=== PATIENT | female | born 1985 | race American Indian/Alaskan Native ===

== ENCOUNTER 2019-06-10 14:59 | Emergency (ER) | payer OTHER ==
[~2019-06-10] VITALS: Ht 157.5 cm; Wt 68.0 kg
[~2019-06-10 14:59] MED LIST: CALCIUM CARBON500 MG PO; IRON27 MG PO; KEFLEX500 MG PO; NORCO 5-325 TA1 EACH PO; PRENATAL VITAM1 EACH PO
[2019-06-10] MEDS ORDERED: PERPHENAZINE8 MG PO (16:16)
[2019-06-10] MEDS ORDERED: BENZTROPINE MESY1 MG PO (16:17)
[2019-06-10] MEDS ORDERED: NAPROSYN500 MG PO (16:17)
[2019-06-10] MEDS ORDERED: CLOZAPINE100 MG PO (16:18)
[2019-06-10] MEDS ORDERED: OMEPRAZOLE20 MG PO (16:18)
== END 2019-06-11 10:41 | disposition short-term general hospital (02) ==
LOC: ED 14:59
DX: F20.9 Schizophrenia, unspecified (principal); Z79.899 Other long term (current) drug therapy
CPT/HCPCS: 51701; 80053; 80176; 81001; 84443; 85025; 99285-25; G0480

== ENCOUNTER 2019-10-23 21:59 | Emergency (ER) | payer OTHER ==
[~2019-10-23] VITALS: Ht 157.5 cm; Wt 68.0 kg
[~2019-10-23 21:59] MED LIST changes: +BENZTROPINE MESY1 MG PO; +CLOZAPINE100 MG PO; +NAPROSYN500 MG PO; +OMEPRAZOLE20 MG PO; +PERPHENAZINE8 MG PO
== END 2019-10-24 05:28 | disposition home or self-care (01) ==
LOC: ED 21:59
DX: F10.129 Alcohol abuse with intoxication, unspecified (principal); F20.9 Schizophrenia, unspecified; F17.200 Nicotine dependence, unspecified, uncomplicated; Z79.899 Other long term (current) drug therapy; Y90.8 Blood alcohol level of 240 mg/100 ml or more
CPT/HCPCS: 51701; 80053; 81001; 84703; 85025; 99284-25; G0480

== ENCOUNTER → 2020-02-19 | Emergency (ER) | payer OTHER ==
[~2020-02-19] VITALS: Ht 157.5 cm; Wt 68.0 kg
[~2020-02-19] MED LIST changes: +CEFPODOXIME PR200 MG PO
--- NOTE | 2020-02-22 15:19 | EKG ---
[facility] [address] [place] [address] Signed Normal sinus rhythm Nonspecific T wave abnormality Abnormal ECG When compared with ECG of 18-FEB-2020 14:07, Nonspecific T wave abnormality now evident in Inferior leads Nonspecific T wave abnormality, worse in Anterolateral leads Confirmed by HERIBERTO NEGRO DO ([id number]) on 02/22/2020 10:52:35 AM Electronically Signed By: HERIBERTO NEGRO DO 02/22/20 1519 PATIENT NAME: VINNIE GODDARD Electrocardiogram DATE OF : 89 PHYSICIAN: HERIBERTO NEGRO DO REPORT #: [id number] REPORT IS CONFIDENTIAL AND NOT TO BE RELEASED WITHOUT AUTHORIZATION
== END ==
LOC: ED 21:34
DX: N39.0 Urinary tract infection, site not specified (principal); F20.9 Schizophrenia, unspecified; F17.200 Nicotine dependence, unspecified, uncomplicated; Z79.899 Other long term (current) drug therapy
CPT/HCPCS: 51701; 70450; 71045; 80053; 80176; 81001; 82550; 82803; 83605; 83930; 84703; 85025; 93005; 93010; 99285-25; G0480; J0696; J7030

== ENCOUNTER 2020-03-20 15:38 | Emergency (ER) | payer OTHER ==
[~2020-03-20] VITALS: Ht 154.9 cm; Wt 81.6 kg
--- OUTSIDE RECORDS SUMMARY | 2020-03-20 15:40 | XMS ---
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 Mary has no Care Guidelines for this patient. [place] VISIT COUNT (12 MO.) 4 [facility] TOTAL 4 NOTE: Visits indicate total known visits. ED/C VISIT TRACKING (12 MO.) 03/20/2020 15:39 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 - Altered mental status, unspecified - Somnolence - Urinary tract infection, site not specified - Nicotine dependence, unspecified, uncomplicated 10/23/2019 22:00 [facility] [place] TYPE: Emergency COMPLAINT: - INTOXICATED DIAGNOSES: - Blood alcohol level of 240 mg/100 ml or more - Alcohol abuse with intoxication, unspecified - Schizophrenia, unspecified - Nicotine dependence, unspecified, uncomplicated - Other assisted (current) drug therapy 06/10/2019 14:59 [facility] [place] TYPE: Emergency COMPLAINT: - MEDICAL CLEARANCE DIAGNOSES: - Schizophrenia, unspecified - Other 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
[2020-03-20] MEDS ORDERED: AMITRIPTYLINE H25 MG PO (16:37)
[2020-03-20] MEDS ORDERED: HALOPERIDOL5 MG PO (16:38)
== END 2020-03-20 19:12 | disposition home or self-care (01) ==
LOC: ED 15:38
DX: F15.90 Other stimulant use, unspecified, uncomplicated (principal); F20.9 Schizophrenia, unspecified; F31.9 Bipolar disorder, unspecified; F17.200 Nicotine dependence, unspecified, uncomplicated; Z79.899 Other long term (current) drug therapy
CPT/HCPCS: 80053; 80176; 81001; 84443; 85025; 99285; G0480

== ENCOUNTER 2021-01-30 19:57 | Emergency (ER) | payer OTHER ==
[~2021-01-30] VITALS: Ht 154.9 cm; Wt 81.7 kg
[~2021-01-30 19:57] MED LIST changes: +AMITRIPTYLINE H25 MG PO; +HALOPERIDOL5 MG PO
== END 2021-01-30 22:44 | disposition home or self-care (01) ==
LOC: ED 19:57
DX: F10.129 Alcohol abuse with intoxication, unspecified (principal); Y90.8 Blood alcohol level of 240 mg/100 ml or more; F17.200 Nicotine dependence, unspecified, uncomplicated; Z79.899 Other long term (current) drug therapy; Z79.1 Long term (current) use of non-steroidal anti-inflammatories (NSAID)
CPT/HCPCS: 80053; 81001; 84703; 85025; 99284; G0480

== ENCOUNTER 2024-04-26 16:03 | Emergency (ER) | payer OTHER ==
[~2024-04-26] VITALS: Ht 154.9 cm; Wt 82.0 kg
[2024-04-26 16:29] LABS: BASOPHILS 1.3 % (0-2); EOSINOPHILS 0.8 % (0-6); HEMOGLOBIN 14.5 g/dL (12.0-18.0); LYMPHOCYTES 30.6 % (24-44); MCH 29.7 (27-36); MCHC 34.6 g/dl (30-36); MONOCYTES 4.7 % (0-12); NEUTROPHILS 62.6 % (39-80); PLATELET COUNT 253 K/uL (140-440); RBC 4.89 M/ul (4.3-5.7); RDW 13.2 (10.5-15.0)
[2024-04-26 16:41] LABS: PH, VENOUS 7.464 (7.31-7.41)
[2024-04-26 16:43] LABS: ALBUMIN 3.4 g/dL (3.4-5.0); ALBUMIN/GLOBULIN RATIO 0.79 (1.1-2.4); BILIRUBIN, TOTAL 0.6 ng/dL (0.2-1.0); BUN/CREATININE RATIO 12.08 (6.0-28.6); CREATININE, SERUM 0.91 mg/dL (0.55-1.02); PROTEIN, TOTAL 7.7 g/dL (6.4-8.2)
[2024-04-26 16:43] LABS: BILIRUBIN, URINE NEGATIVE (negative); BLOOD/HGB, URINE NEGATIVE (Negative); KETONE, URINE SMALL (Negative); LEUK ESTERASE, URINE NEGATIVE (negative); NITRITE, URINE NEGATIVE (negative)
[2024-04-26] MEDS ORDERED: Insulin Regular, Human 100 UNIT/ML ML IV ONE (16:45)
[2024-04-26] MEDS ORDERED: SODIUM CHLORIDE 0.9% 1,000 ML IV PRN (16:45)
[2024-04-26 16:47] LABS: MAGNESIUM 1.7 mg/dL (1.8-2.4)
[2024-04-26 17:53] LABS: INFLUENZA B NAA NEGATIVE (NEGATIVE); RESPIRATORY SYNCYTIAL VIR NAA NEGATIVE (NEGATIVE)
[2024-04-26 19:43] VITALS: BP 144/90
== END 2024-04-26 19:30 | disposition left against medical advice (07) ==
LOC: ED 16:03
PROVIDERS: Emergency Medicine
DX: E11.65 Type 2 diabetes mellitus with hyperglycemia (principal); E86.0 Dehydration; T38.3X6A Underdosing of insulin and oral hypoglycemic [antidiabetic] drugs, initial encounter; F17.200 Nicotine dependence, unspecified, uncomplicated; Z91.148 Patient's other noncompliance with medication regimen for other reason; Z53.29 Procedure and treatment not carried out because of patient's decision for other reasons; Z79.899 Other long term (current) drug therapy
CPT/HCPCS: 36415; 80053; 81003; 82803; 83690; 83735; 84703; 85025; 87502; 96374; 99284-25; J1815; J7030; U0002

== ENCOUNTER 2024-05-29 14:02 | Emergency (ER) | payer OTHER ==
[~2024-05-29] VITALS: Ht 154.9 cm; Wt 70.8 kg
[2024-05-29] MEDS ORDERED: Insulin Regular, Human 100 UNIT/ML ML SUB-Q ONE (15:00)
[2024-05-29] MEDS ORDERED: SODIUM CHLORIDE 0.9% 1,000 ML IV PRN (15:00)
[2024-05-29] MEDS ORDERED: QUETIAPINE FUM300 MG PO (15:11)
[2024-05-29] MEDS ORDERED: PROPRANOLOL HCL20 MG PO (15:12)
[2024-05-29] MEDS ORDERED: METFORMIN HCL750 MG PO (15:12)
[2024-05-29] MEDS ORDERED: GABAPENTIN300 MG PO (15:13)
[2024-05-29 15:14] LABS: BASOPHILS 0.6 % (0-2); EOSINOPHILS 1.2 % (0-6); HEMATOCRIT 39.8 % (35.0-50.0); HEMOGLOBIN 13.7 g/dL (12.0-18.0); MCH 29.2 (27-36); MCHC 34.5 g/dl (30-36); MCV 84.7 fl (81-99); MONOCYTES 3.4 % (0-12); NEUTROPHILS 56.8 % (39-80); PLATELET COUNT 292 K/uL (140-440); RBC 4.69 M/ul (4.3-5.7); RDW 13.2 (10.5-15.0)
[2024-05-29] MEDS ORDERED: OZEMPIC0.25 MG/02 SUB-Q (15:14)
[2024-05-29 15:24] LABS: ANION GAP 16.4 (7-21); BUN/CREATININE RATIO 5.55 (6.0-28.6); CALCIUM 9.1 mg/dL (8.5-10.1); CREATININE, SERUM 0.9 mg/dL (0.55-1.02); POTASSIUM 3.4 mmol/L (3.5-5.1)
[2024-05-29 16:40] VITALS: BP 125/93
== END 2024-05-29 16:41 | disposition home or self-care (01) ==
LOC: ED 14:02
PROVIDERS: Emergency Medicine
DX: E11.65 Type 2 diabetes mellitus with hyperglycemia (principal); F31.9 Bipolar disorder, unspecified; F17.200 Nicotine dependence, unspecified, uncomplicated; Z79.4 Long term (current) use of insulin; Z79.84 Long term (current) use of oral hypoglycemic drugs; Z79.899 Other long term (current) drug therapy
CPT/HCPCS: 36415; 80048; 85025; 96360; 96361; 99284-25; J1815; J7030

== ENCOUNTER 2025-02-20 16:55 | Inpatient (IN) | payer OTHER ==
[~2025-02-20] VITALS: Ht 154.9 cm; Wt 58.3 kg
[~2025-02-20 16:55] MED LIST changes: +GABAPENTIN300 MG PO; +METFORMIN HCL750 MG PO; +OZEMPIC0.25 MG/02 SUB-Q; +PROPRANOLOL HCL20 MG PO; +QUETIAPINE FUM300 MG PO
[2025-02-20 17:30] LABS: BASOPHILS 0.1 % (0.1-1.2); EOSINOPHILS 0 % (0.7-5.8); LYMPHOCYTES 5.5 % (19.3-51.7); MCH 29.6 PG (25.6-32.2); MCHC 27.7 g/dL (32.2-35.5); MCV 107.0 fL (79.4-94.8); MONOCYTES 5.2 % (4.7-12.5); NEUTROPHILS 88.6 % (34.0-71.1); RBC 4.42 M/uL (3.93-5.22)
[2025-02-20] MEDS ORDERED: SODIUM CHLORIDE 0.9% 1,000 ML IV PRN (17:30)
[2025-02-20] MEDS ORDERED: INSULIN REGULAR IN 0.9 % NACL 100 ML IV SCH ×2 (17:45→18:45)
[2025-02-20 17:48] LABS: BLOOD/HGB, URINE TRACE-I (Negative); KETONE, URINE NEGATIVE (Negative); LEUK ESTERASE, URINE NEGATIVE (negative); NITRITE, URINE NEGATIVE (negative)
[2025-02-20 17:54] LABS: BACTERIA, URINE NONE SEEN /hpf (negative); CASTS, URINE NONE SEEN \\lpf; CRYSTALS, URINE NONE SEEN (0-1+); EPITHELIAL CELLS, URINE NONE SEEN /lpf (0-1+); REFLEX CULTURE, URINE No (No)
[2025-02-20 18:00] LABS: ALT (SGPT) 18.0 U/L (14-59); AST (SGOT) 6.0 U/L (15-37); GLOMERULAR FILTRATION RATE,EST 30.0 mL/min (>60); PROTEIN, TOTAL 8.1 g/dL (6.4-8.2); UREA NITROGEN 3.0 mg/dL (7-18)
[2025-02-20 18:13] LABS: AMPHETAMINES, URINE POSITIVE (NEGATIVE); BARBITURATES, URINE NEGATIVE (NEGATIVE); BENZODIAZEPINE, URINE NEGATIVE (NEGATIVE); CANNABINOID, URINE NEGATIVE (NEGATIVE); COCAINE, URINE NEGATIVE (NEGATIVE); ECSTASY, URINE NEGATIVE (NEGATIVE); FENTANYL, URINE NEGATIVE (NEGATIVE); METHADONE, URINE NEGATIVE (NEGATIVE); OPIATES, URINE NEGATIVE (NEGATIVE); OXYCODONE, URINE NEGATIVE (NEGATIVE); PHENCYCLIDINE, URINE NEGATIVE (NEGATIVE)
[2025-02-20] MEDS ORDERED: IBLOOD GLUCOSE TEST STRIP 1 EA TEST XX PRN (18:30)
[2025-02-20] MEDS ORDERED: SODIUM CHLORIDE 0.9% 1,000 ML IV SCH (18:30)
[2025-02-20] MEDS ORDERED: DEXTROSE 50% 50 ML SYR IV PRN ×2 (18:30)
[2025-02-20] MEDS ORDERED: LACTATED RINGER'S 1,000 ML IV SCH (18:30)
[2025-02-20] MEDS ORDERED: GLUCAGON,HUMAN RECOMBINANT 1 MG/ML VIAL SUB-Q PRN (18:30)
[2025-02-20] MEDS ORDERED: ACETAMINOPHEN 325 MG TAB PO PRN (18:30)
[2025-02-20] MEDS ORDERED: DEXTROSE 5% 1,000 ML IV PRN (18:30)
[2025-02-20] MEDS ORDERED: QUETIAPINE FUMARATE 100 MG TAB PO SCH (18:35)
[2025-02-20] MEDS ORDERED: LACTATED RINGER'S 1,000 ML IV ONE (18:45)
[2025-02-20 18:57] LABS: BASE EXCESS, BLOOD GAS -7.3 mmol/L (-2-2); HCO3, BLOOD GAS 17.5 mmol/L (22-26); O2 SATURATION, BLOOD GAS 96.1 % (95.0-100.0); PCO2, BLOOD GAS 32.6 mmHg (35-45); PH, BLOOD GAS 7.34 (7.35-7.45); PO2, BLOOD GAS 77 mmHg (80-100); TOTAL CO2, BLOOD GAS 18.5
[2025-02-20 18:58] LABS: OXYGEN RECEIVED, BLOOD GAS RA
[2025-02-20 19:42] LABS: GLOMERULAR FILTRATION RATE,EST 56.0 mL/min (>60); UREA NITROGEN 2.0 mg/dL (7-18)
[2025-02-20] MEDS ORDERED: IBLOOD GLUCOSE TEST STRIP 1 EA TEST VI SCH (20:00)
--- NOTE | 2025-02-20 20:00 | NUR ---
PATIENT ARRIVED VIA STRETCHER. PATIENT IS DROWSY BUT ABLE TO TRANSFER TO [facility] AND VOID, THEN INTO BED WITH MINIMAL ASSIST. PATIENT IS WITHDRAWN AND DOES NOT ANSWER MANY QUESTIIONS OR ELABORATE ON ANYTHING. PATIENT DID REQUEST FOOD AND WATER. EDUCATED ON NPO FOR NOW AND WILL REVIEW WITH MD. PATIENT VS STABLE. TOLERATING ROOM AIR. IV FLUID BOLUS STARTED IN ED IS FINSIHING. INSULIN DRIP INFUSING PER ED START AT 8.8 UNITS/HR. VERIFIED WITH SECOND RN, JOSE MOSLEY WHO RECEIVED PATIENT REPORT FROM ED RN.
[2025-02-20 20:04] VITALS: BP 127/83
--- NOTE | 2025-02-20 20:30 | NUR ---
REVIEWED LABS AND MEDS WITH AT BEDSIDE. VERIFIED IV FLUID ORDERS; FINISH BOLUS, RUN LR AT @ 200 FOR 3 BAGS. THEN SWITCH TO NS @ 125.
[2025-02-20 21:00] VITALS: BP 142/90
[2025-02-20 22:00] VITALS: BP 132/86
[2025-02-20] MEDS ORDERED: POTASSIUM CHLORIDE 10 MEQ/100 ML BAG IV SCH ×2 (22:00→23:30)
--- NOTE | 2025-02-20 22:30 | NUR ---
PATIENT RESTING IN BED. WAKES EASILY TO VOICE. DENIED PAIN OR GI UPSET. IV FLUIDS AND INSULIN INFUSING PER ORDER. IV SITES WNL.
[2025-02-20 23:11] VITALS: BP 122/88
[2025-02-20 23:11] LABS: GLOMERULAR FILTRATION RATE,EST 116.0 mL/min (>60); UREA NITROGEN 1.0 mg/dL (7-18)
[2025-02-20] MEDS ORDERED: DEXTROSE 5% - NACL 0.45% 1,000 ML IV SCH (23:30)
--- NOTE | 2025-02-20 23:34 | NUR ---
PT C/O ABDOMINAL PAIN FEELING NAUSEAUTED, REQUESTING IBUPROPHEN. PT OFFERED ZOFRAN, ACCEPTED. 4MG IV ZOFRAN ADMINISTERED.
[2025-02-21] VITALS (17 sets, daily range): BP systolic 79–122; BP diastolic 56–88
--- NOTE | 2025-02-21 00:30 | NUR ---
PATIENT RESTING IN BED. REPORTS IMPROVEMENT IN HER GI UPSET. IV FLUIDS CHANGED DUE TO GLUCOSE BEING UNDER 200. PATIENT REMIANS ON INSULIN DRIP PER ORDERS. IV SITES WNL X3. POTASSIUM REPLACEMENT INFUSING WITHOUT CONCERN. CALL LIGHT IN REACH.
--- NOTE | 2025-02-21 02:30 | NUR ---
PATIENT APPEARS RESTFUL IN BED. VS STABLE. IV SITES WNL X3. PATIENT REMAINS ON INSULIN DRIP WITH HOURLY ACCU CHECKS.
--- NOTE | 2025-02-21 04:00 | NUR ---
PATIENT WAKES WITH CARE. DENIED NEEDS. IS REQUESTING FOOD, DISCUSSED PLAN TO ADVANCE DIET IN THE MORNING. PATIENT AGREEABLE. CALL LIGHT IN REACH.
--- NOTE | 2025-02-21 05:00 | NUR ---
LAB IN FOR MORNING DRAW. PATIENT TOLERATED WELL. DENIED NEED TO VOID AT THIS TIME. DENIED NEEDS. CALL LIGHT IN REACH. BED ALARM ACTIVE.
[2025-02-21 05:23] LABS: MCH 30.0 PG (25.6-32.2); MCHC 34.0 g/dL (32.2-35.5); MCV 88.3 fL (79.4-94.8); RBC 3.67 M/uL (3.93-5.22)
[2025-02-21 05:40] LABS: ALT (SGPT) 13.0 U/L (14-59); AST (SGOT) 7.0 U/L (15-37); GLOMERULAR FILTRATION RATE,EST 128.0 mL/min (>60); PHOSPHORUS, INORGANIC 2.0 mg/dL (2.5-4.9); PROTEIN, TOTAL 5.7 g/dL (6.4-8.2); UREA NITROGEN 0.0 mg/dL (7-18)
[2025-02-21 05:43] LABS: LYMPHOCYTES, MANUAL DIFF 26; MONOCYTES, MANUAL DIFF 4; NEUTROPHILS, MANUAL DIFF 70
[2025-02-21] MEDS ORDERED: MAGNESIUM SULFATE 2 GM/50 ML BAG IV ONE (06:00)
[2025-02-21] MEDS ORDERED: POTASSIUM CHLORIDE 10 MEQ TABCR PO ONE ×2 (06:00→15:30)
--- NOTE | 2025-02-21 06:15 | NUR ---
PATIENT UP TO THE BSC TO VOID. PATIENT REPORTS FEELING BETTER BUT IS HUNGRY. PATIENT DENIED GI UPSET. VS STABLE.
--- NOTE | 2025-02-21 06:50 | NUR ---
UPDATED ON PATIENT STATUS. ORDERS TO CHANGE TO SSI WITH Q2H ACCU CHECKS. ADVANCE TO CARB CONSISTENT DIET AND SL.
[2025-02-21] MEDS ORDERED: METFORMIN HCL1000 MG PO (07:32)
[2025-02-21] MEDS ORDERED: Insulin Regular, Human 100 UNIT/ML ML SUB-Q SCH ×3 (08:00→21:00)
[2025-02-21] MEDS ORDERED: IBLOOD GLUCOSE TEST STRIP 1 EA TEST VI SCH ×3 (08:00→21:00)
--- NOTE | 2025-02-21 08:30 | NUR ---
DHS WORKER FOR PT'S CHILD CASE MANAGMENT IN ROOM TO SEE PT WITH PT PERMISSION.
[2025-02-21] MEDS ORDERED: PROPRANOLOL HCL 20 MG TAB PO SCH (09:00)
[2025-02-21] MEDS ORDERED: PANTOPRAZOLE SODIUM 40 MG TABEC PO SCH (09:00)
[2025-02-21] MEDS ORDERED: ELECTROLTYTE REPLACEMEMT CCU 1 EACH EA PO/IV SCH (09:00)
[2025-02-21] MEDS ORDERED: LANTUS SOL100 UNIT/1 SUB-Q (09:07)
--- NOTE | 2025-02-21 09:15 | NUR ---
PT DROWSY IN BED BUT WAKES EASILY FOR ASSESSMENT. REPOSISTIONED UP IN BED TO EAT CREAM OF WHEAT REQUESTED. REPORTS NON SPECIFIC COMPLAINTS BUT DENIES NEEDS. IV SITE SALINE LOCKED.
--- NOTE | 2025-02-21 09:32 | NUR ---
UR CLINICAL REVIEW: [facility] [place] MEETS INPT FOR DIABETES GLUCOSE UP TO 1629 AND REMAINS >600 AFTER ER TREATMENT, IV FLUIDS, TREND LABS, INSULIN GTT, POTASSIUM DOWN TO 2.8, TACHYCARDIC AT 112 BPM BASIC DMAP (MEDICAID) INPT 02/20/2025 @ 1832 ORDER MATCHES REG NO AUTH REQUIRED PER MEDICAID RULES DC TO HOME WHEN MEDICALLY STABLE DC 02/22/25
[2025-02-21 10:18] LABS: GLOMERULAR FILTRATION RATE,EST 126.0 mL/min (>60); UREA NITROGEN 1.0 mg/dL (7-18)
--- NOTE | 2025-02-21 10:20 | NUR ---
PT DROWSY AFTER MORNING MEDICATION ADMINISTRATION, OPENS EYES MOMENTARILY TO VERBAL STIMULI AND THEN FALLS BACK ASLEEP. PT BLOOD PRESSURE 83/59 (67). BLOOD SUGAR REMAINS ELEVATED, INSULIN GIVEN PER SLIDING SCALE AND VERIFIED WITH ANOTHER RN. CALL LIGHT IN REACH
--- NOTE | 2025-02-21 11:05 | NUR ---
ATTEMPTED CM ASSESMENT. PATIENT AROUSABLE BUT DID NOT RESPOND TO ANY QUESTIONS.
[2025-02-21] MEDS ORDERED: PHARMACY RENAL DOSE ADJUSTMENT 1 DOSE MISC PO SCH (12:00)
--- NOTE | 2025-02-21 12:41 | NUR ---
MED REC COMPLETE
--- NOTE | 2025-02-21 13:42 | NUR ---
PT ASSISTED UP TO BSC - DROWSY BUT RESPONSIVE. VOID 800. PT EATEN 50% LUNCH. RETURNS TO BED AND BACK TO SLEEP. VS STABLE ON MONITOR. ASSESSMENT UNCHANGED
--- NOTE | 2025-02-21 14:06 | NUR ---
INTO SEE PATIENT. PATIENT UNABLE TO VERIFY TOP SCREW WITH ME. SHE CONFIRMED HER ADDRESS STATING "IT IS A [place]." NO DME AT HOME. DOES NOT DRIVE. ASKED HER IF SHE WOULD LIKE ANY SUBSTANCE ABUSE COUNSELING. SHE STATES "NO". PATIENT ASKED "WHO ARE YOU" LET HER KNOW I AM A MEDIA RELATIONS SPECIALIST WANTING TO ASSIST WITH RESOURCES IF SHE WANTED THEM. ASKED HER ABOUT HER DIABETES AND SHE SAID SHE DOES NOT CHECK HER SUGARS AND THEN QUIT ANSWERING QUESTIONS. NO FUTHER CM NEEDS AT THIS TIME.
[2025-02-21 14:17] LABS: GLOMERULAR FILTRATION RATE,EST 126.0 mL/min (>60); UREA NITROGEN 5.0 mg/dL (7-18)
--- NOTE | 2025-02-21 15:11 | NUR ---
PT NOTED TO BE INCREASINGLY HYPOTENSIVE WITH DIAPHORESIS AND INCREASED DROWSYNESS. MD NOTIFIED. ORDERS RECEIVED FOR 500 ML BOLUS OF LR, DC PROPANALOL AND SEROQUEL. BOLUS STARTED.
[2025-02-21] MEDS ORDERED: LACTATED RINGER'S 500 ML IV ONE (15:15)
--- NOTE | 2025-02-21 15:58 | NUR ---
IN TO CHECK ON IV ALARM, PT RESTING, AROUSABLE, DENIES NEEDS AT THIS TIME.
--- NOTE | 2025-02-21 16:05 | NUR ---
PT REFUSES TO TAKE POTASSIUM AT THIS TIME.
--- NOTE | 2025-02-21 16:45 | NUR ---
BOLUS COMPLETE - PT AROUSABLE BUT DROWSY. BP IMPROVED.
--- NOTE | 2025-02-21 18:45 | NUR ---
PT RESTING IN BED ON SIDE, WAKES EASILY UPON ENTERING ROOM. PT STATES SHE "FEELS BETTER". AGREES TO TAKE PO K+ THAT SHE PREVIOUSLY DENIED. DENIES FURTHER NEEDS AT THIS TIME. DENIES PAIN OR NAUSEA, CALL LIGHT IN REACH, BED ALARM ON.
--- NOTE | 2025-02-21 19:53 | NUR ---
REPORT RECEIVED FROM DAY SHIFT RN. PATIENT RESTING IN BED. PATIENT UP TO BSC TO VOID. PATIENT REQUESTING TO SIT IN CHAIR. PATIENT TO CHAIR USING 1P SBA. TEMP OBTAINED AND RECORDED. ASSESSMENT COMPLETE. PATIENT A&O. FRESH ICE WATER PROVIDED. PATIENT DENIES FURTHER NEEDS AT THIS TIME. CALL LIGHT IN REACH.
--- NOTE | 2025-02-21 20:08 | NUR ---
CALL LIGHT ANSWERED. PATIENT REQUESTING TO LAY BACK IN BED. PATIENT BACK TO BED USING 1P SBA. PATIENT REQUESTING PRN PAIN MEDICATION FOR 4/10 "STOMACHE ACHE" PAIN. PRN PAIN MEDICATION ADMINISTERED. PATIENT DENIES FURTHER NEEDS. CALL LIGHT IN REACH.
[2025-02-21] MEDS ORDERED: INSULIN GLARGINE-YFGN 100 UNIT/ML ML SUB-Q SCH (21:00)
--- NOTE | 2025-02-21 21:16 | NUR ---
PATIENT RESTING IN BED WITH EYES CLOSED. BS OBTAINED AND RECORDED. SCHEDULED INSULIN ADMINISTERED. PATIENT DENIES FURTHER NEEDS AT THIS TIME. BED ALARM ON. CALL LIGHT IN REACH.
--- NOTE | 2025-02-21 22:35 | NUR ---
PATIENT RESTING IN BED WITH EYES CLOSED. RESPIRATIONS EVEN AND UNLABORED. CALL LIGHT IN REACH. BED ALARM ON.
[2025-02-22] VITALS (12 sets, daily range): BP systolic 78–110; BP diastolic 53–85
--- NOTE | 2025-02-22 00:33 | NUR ---
PATIENT RESTING IN BED WITH EYES CLOSED. ASSESSMENT COMPLETE. PATIENT DENIES FURTHER NEEDS. CALL LIGHT IN REACH. BED ALARM ON.
--- NOTE | 2025-02-22 02:20 | NUR ---
CALL LIGHT ANSWERED. PATIENT UP TO BSC INDEPENDENTLY TO VOID. PATIENT BACK TO BED. PATIENT STATES "THERE IS A BUMP ON MY VAGINA". FIRM RAISED AREA NOTED ON LEFT POSTERIOR PERINEUM, GOLF BALL SIZED. WARM AND PAINFUL TO TOUCH. NO DRAINAGE NOTED. PATIENT REPORTS THAT SHE HAS NEVER HAD SOMETHING LIKE THIS BEFORE. PATIENT DENIES FURTHER NEEDS. CALL LIGHT IN REACH. BED ALARM ON.
--- NOTE | 2025-02-22 03:33 | NUR ---
PATIENT RESTING IN BED ON BACK WITH EYES CLOSED. RESPIRATIONS EVEN AND UNLABORED. CALL LIGHT IN REACH. BED ALARM ON.
--- NOTE | 2025-02-22 03:59 | NUR ---
CALL LIGHT ANSWERED. PATIENT UP TO BSC INDEPENDENTLY TO VOID. PATIENT BACK TO BED. ASSESSMENT COMPLETE. PATIENT DENIES FURTHER NEEDS AT THIS TIME. CALL LIGHT IN REACH. BED ALARM ON.
[2025-02-22 05:19] LABS: BASOPHILS 0.4 % (0.1-1.2); EOSINOPHILS 1.0 % (0.7-5.8); LYMPHOCYTES 37.2 % (19.3-51.7); MCH 29.9 PG (25.6-32.2); MCHC 33.2 g/dL (32.2-35.5); MCV 89.9 fL (79.4-94.8); MONOCYTES 3.8 % (4.7-12.5); NEUTROPHILS 57.3 % (34.0-71.1); RBC 3.88 M/uL (3.93-5.22)
[2025-02-22 05:36] LABS: ALT (SGPT) 14.0 U/L (14-59); AST (SGOT) 9.0 U/L (15-37); GLOMERULAR FILTRATION RATE,EST 129.0 mL/min (>60); PROTEIN, TOTAL 5.6 g/dL (6.4-8.2); UREA NITROGEN 2.0 mg/dL (7-18)
--- NOTE | 2025-02-22 06:01 | NUR ---
PATIENT RESTING IN BED WITH EYES CLOSED. RESPIRATIONS EVEN AND UNLABORED. CALL LIGHT IN REACH. BED ALARM ON.
--- NOTE | 2025-02-22 06:59 | NUR ---
MD PIERRE ON FLOOR AND UPDATED BY THIS RN AND SONNY ROD OF PATIENTS RECENT YEAST INFECTION THAT WAS PREVIOUSLY TREATED IN [place] PER PATIENT. WAS ALSO UPDATED ON PATIENTS BUMP ON POSTERIOR PERINEUM. NO NEW ORDERS. MD PIERRE GAVE VERBAL ORDER TO SONNY ROD FOR NEW INSULIN ORDER. VERIFIED USING REPEAT BACK METHOD. SEE EMAR.
[2025-02-22] MEDS ORDERED: INSULIN GLARGINE-YFGN 100 UNIT/ML ML SUB-Q SCH (08:00)
--- NOTE | 2025-02-22 11:30 | NUR ---
WALKED PATIENT DOWN TO ROOM 126. PATIENT BRUSHED HER TEETH AND WASHED HER FACE WHILE IN THE SHOWER. SHE NEEDED HELP WITH WASHING HER BACK. SHE ALSO NEEDED HELP WASHING HER HAIR. AFTER SHOWER HEPED HER PUT HER GOWN ON AND SOCKS. ALSO BLOWED DRIED HER HAIR. THAN PUT IT IN A BRAID.
[2025-02-22] MEDS ORDERED: SEROQUEL100 MG PO (12:07)
[2025-02-22] MEDS ORDERED: NALTREXONE HCL50 MG PO (12:07)
[2025-02-22] MEDS ORDERED: NEURONTIN300 MG PO (12:09)
[2025-02-22] MEDS ORDERED: HALOPERIDO100 MG/1 M IM (12:11)
[2025-02-22] MEDS ORDERED: OZEMPIC1 MG/0.71 SUB-Q (12:31)
[2025-02-22] MEDS ORDERED: TOPAMAX25 MG PO (12:32)
[2025-02-22] MEDS ORDERED: BENZTROPINE ME0.5 MG PO (12:39)
[2025-02-22] MEDS ORDERED: HALOPERIDOL10 MG PO (12:39)
[2025-02-22] MEDS ORDERED: NICOTINE1 EAC2 TD (12:44)
--- NOTE | 2025-02-22 13:37 | NUR ---
PT UP IN CHAIR, DENIES PAIN, REQUESTS SNACK.
--- NOTE | 2025-02-22 14:51 | NUR ---
PT SITTING UP ON EDGE OF BED, DENIES NEEDS AT THIS TIME.
--- NOTE | 2025-02-22 18:17 | NUR ---
PT RESTING IN BED WITH EYES CLOSED, NO DISTRESS NOTED. NO NEEDS AT THIS TIME, CALL LIGHT IN REACH
--- NOTE | 2025-02-22 19:45 | NUR ---
THIS RN RECEIVED REPORT FROM RN. PATIENT RESTING IN BED AT THIS TIME, DENIES NEEDS AT THIS TIME. PATIENT STATES SHE IS ITCHING VAGINALLY, REQUESTING SOMETHING, PT STATES SHE DID HAVE A CREAM THAT WAS PRESCRIBED PRIOR TO COMING IN BUT NEVER GOT TO USE IT, WILL DISCUSS WITH PROVIDER. PT DENIES ANY BURNING WITH URINATION, STATES IT IS ITCHING, PER REPORT FROM DAYSHIFT RN - POTENTIALLY SOME WHITE DISCHARGE WELL. PAIN / AT THIS TIME, DENIES ANY NAUSEA OR PAIN NEEDS. TEMP 98.4 ORALLY, VS STABLE. PT INFORMED THIS RN WILL BE BACK AROUND 2100 TO GET BLOOD SUGAR AND PROVIDE EVENING MEDS, CALL LIGHT WITHIN REACH, INFORMED TO CALL IN THE MEANTIME IF SHE NEEDS ANYTHING.
--- NOTE | 2025-02-22 21:09 | NUR ---
RONALD HERNÁNDEZ CHECKED AND CHARTED PATIENTS BLOOD SUGAR LEVELS. PATENT LEFT WITH CALL LIGHT WITHIN REACH, NO FURTHER NEEDS.
--- NOTE | 2025-02-22 21:23 | NUR ---
PT RESTING IN BED AT THIS TIME, VERY SIMPLE RESPONSES DURING ASSESSMENT. PT DENIES PAIN AT THIS TIME, INFORMED THAT BLOOD SUGAR WAS 294, PROVIDING HER WITH 2 DIFFERENT INSULIN FOR HER BLOOD SUGAR COVERAGE, EXPLAINED THE PURPOSE OF EACH AND WHY GIVING THEM, PT STATES SHE WILL LET DOCTOR KNOW IN THE MORNING THAT WE ARE DOING THAT, EXPLAINED HE IS THE PHYSICIAN WHO ORDERED IT. PT DENIES ANY OTHER NEEDS, CALL LIGHT WITHIN REACH. BSC NEXT TO BED. PT ASKED IF THIS RN WILL BE IN AGAIN TODAY, WANTS TO SLEEP. INFORMED ALL HER MEDS ARE DONE AND SHE CAN SLEEP, INFORMED WILL BE BACK IN FOR AN ASSESSMENT IN WHICH SHE JUST MOANED IN ANNOYANCE. PT TURNED TO SIDE AND CLOSED EYES PRIOR TO THIS RN LEAVING ROOM.
--- NOTE | 2025-02-22 22:03 | NUR ---
DISCUSSED PATIENT C/O ITCHING WITH MD, ORDER FOR DIFLUCAN 100MG X3 DAYS GIVEN TO THIS RN VERBALLY. ORDER REPEATED BACK AND VERIFIED. ORDERS INPUT.
[2025-02-23] VITALS: BP 103/76
[2025-02-23 02:00] VITALS: BP 98/68
--- NOTE | 2025-02-23 02:14 | NUR ---
PT IS RESTING IN BED, RESPIRATIONS EVEN/UNLABORED. VS STABLE, SATS 96% ON RA. PATIENT DOES NOT APPEAR TO BE IN ANY DISTRESS, REQUESTED TO SLEEP THROUGHT THE NIGHT. ALL PT CARE NEEDS MET, CALL LIGHT IS WITHIN REACH. THIS RN ALLOWS PATIENT TO CONTINUE TO SLEEP.
[2025-02-23 04:00] VITALS: BP 98/71
--- NOTE | 2025-02-23 05:00 | NUR ---
PT REFUSED LAB DRAW PER GUIDE FOREIGN TOUR. THIS RN INTO ROOM, PATIENT AGREES TO HAVE LABS DRAWN AT THIS TIME. GUIDE FOREIGN TOUR NOTIFIED AND WILL DRAW LABS.
[2025-02-23 05:16] LABS: BASOPHILS 0.6 % (0.1-1.2); EOSINOPHILS 2.1 % (0.7-5.8); LYMPHOCYTES 37.0 % (19.3-51.7); MCH 29.7 PG (25.6-32.2); MCHC 33.2 g/dL (32.2-35.5); MCV 89.3 fL (79.4-94.8); MONOCYTES 3.5 % (4.7-12.5); NEUTROPHILS 56.4 % (34.0-71.1); RBC 4.28 M/uL (3.93-5.22)
[2025-02-23 05:40] LABS: GLOMERULAR FILTRATION RATE,EST 129.0 mL/min (>60); UREA NITROGEN 9.0 mg/dL (7-18)
[2025-02-23 06:30] VITALS: BP 110/85
--- NOTE | 2025-02-23 06:30 | NUR ---
PT CONTINUES TO SLEEP. BSC EMPTIED OF 1700ML THROUGHOUT NIGHT. VS STABLE. PT DENIES ANY NEEDS, WANTS TO SLEEP AT THIS TIME. ASSESSMENT COMPLETED. THIS RN ALLOWS PATIENT TO SLEEP.
[2025-02-23 08:39] VITALS: BP 122/94
--- NOTE | 2025-02-23 08:40 | NUR ---
PT WAKES EASILY FOR ASSESSMENT - RESTING IN BED, DENIES WANTING BLINDS OR LIGHTS OPEN, "WANTS TO SLEEP". 100% BREAKFAST EATEN. ABX COMPLETE, IV SL. PT DENIES NEEDS AT THIS TIME. CALL LIGHT IN REACH.
[2025-02-23] MEDS ORDERED: FLUCONAZOLE 100 MG TAB PO SCH (09:00)
[2025-02-23] MEDS ORDERED: AMOX TR-K CLV1 EACH PO (11:48)
[2025-02-23] MEDS ORDERED: FLUCONAZOLE100 MG PO (11:49)
--- NOTE | 2025-02-23 11:49 | NUR ---
DR PIERRE IN TO TALK WITH PATIENT AND PLAN TO DISCHARGE TODAY, PT AGREEABLE AND STATES SHE DOES WANT TO GO HOME TODAY AND THAT SHE IS FEELING BETTER. BLOOD SUGAR 260, PT STATES SHE HAS SOME INSULIN LEFT AT HOME AND WILL BE ABLE TO GET BY UNTIL SHE CAN GET TO HER PHARMACY.
[2025-02-23] MEDS ORDERED: INSULIN GL100 UNIT/1 SUB-Q (11:52)
== END 2025-02-23 12:50 | disposition home or self-care (01) | DRG 988 ==
LOC: ED 16:55 → CCU 18:47
PROVIDERS: Emergency Medicine; ADMIT Internal Medicine; ATTEND Internal Medicine
PROC: 4A033R1 Measurement of Arterial Saturation, Peripheral, Percutaneous Approach (ICD-10-PCS; 2025-02-20)
PROC: 3E03329 Introduction of Other Anti-infective into Peripheral Vein, Percutaneous Approach (ICD-10-PCS; 2025-02-20)
PROC: 0JC90ZZ Extirpation of Matter from Buttock Subcutaneous Tissue and Fascia, Open Approach (ICD-10-PCS; principal; 2025-02-22)
DX: E11.00 Type 2 diabetes mellitus with hyperosmolarity without nonketotic hyperglycemic-hyperosmolar coma (NKHHC) (principal); E87.1 Hypo-osmolality and hyponatremia; N17.9 Acute kidney failure, unspecified; E87.20 Acidosis, unspecified; Z59.00 Homelessness unspecified; L02.31 Cutaneous abscess of buttock; N89.8 Other specified noninflammatory disorders of vagina; F19.10 Other psychoactive substance abuse, uncomplicated; D75.89 Other specified diseases of blood and blood-forming organs; F17.210 Nicotine dependence, cigarettes, uncomplicated; T38.3X6A Underdosing of insulin and oral hypoglycemic [antidiabetic] drugs, initial encounter; E86.0 Dehydration; F20.9 Schizophrenia, unspecified; Z91.138 Patient's unintentional underdosing of medication regimen for other reason; Z79.84 Long term (current) use of oral hypoglycemic drugs; Z79.4 Long term (current) use of insulin; Z79.85 Long-term (current) use of injectable non-insulin antidiabetic drugs
CPT/HCPCS: 36415; 36592; 36600; 80048; 80053; 80307; 81001; 82010; 82803; 82947; 83735; 84100; 84703; 85025; A9270; J0696; J1815; J2405; J3475; J3480; J7030; J7042; J7121